=== PATIENT | male | born 1940 | race American Indian/Alaskan Native ===

== ENCOUNTER 2016-05-24 17:13 | Emergency (ER) | payer SELFPAY ==
[~2016-05-24] VITALS: Ht 167.6 cm; Wt 93.0 kg
[2016-05-24 17:29] VITALS: Ht 167.6 cm; Wt 93.0 kg
== END 2016-05-24 17:40 | disposition left against medical advice (07) ==
LOC: E/R 17:13
DX: Z53.21 Procedure and treatment not carried out due to patient leaving prior to being seen by health care provider (principal)